=== PATIENT | female | born 1960 | race Caucasian/White ===

== ENCOUNTER → 2021-11-27 | Outpatient (CLI) | payer OTHER ==
[~2021-11-27] MED LIST: ATIVAN2 MG PO; ESTRACE0.5 MG PO; SIMVASTATIN10 MG PO; TOPROL XL50 MG PO
== END ==
LOC: RAD 11:23
PROVIDERS: ATTEND Family Medicine
DX: M47.812 Spondylosis without myelopathy or radiculopathy, cervical region (principal)
CPT/HCPCS: 72050